=== PATIENT | male | born 1930 | race Caucasian/White ===

== ENCOUNTER 2017-04-08 10:03 | Outpatient (CLI) | payer MEDICARE, OTHER | END 2017-04-08 10:04 | disposition home or self-care (01) | LOC: SC 10:03 | PROVIDERS: ATTEND Internal Medicine Pulmonary Disease | DX: G47.33 Obstructive sleep apnea (adult) (pediatric) (principal) | CPT/HCPCS: 99203; G0463; 99212 ==

== ENCOUNTER 2017-04-18 21:37 | Outpatient (CLI) | payer MEDICARE, OTHER | END 2017-04-18 21:38 | disposition home or self-care (01) | LOC: SC 21:37 | PROVIDERS: ATTEND Internal Medicine Pulmonary Disease | DX: G47.61 Periodic limb movement disorder (principal) | CPT/HCPCS: 95810 ==

== ENCOUNTER 2017-05-22 11:06 | Outpatient (CLI) | payer MEDICARE, OTHER | END 2017-05-22 11:07 | disposition home or self-care (01) | LOC: SC 11:06 | PROVIDERS: ATTEND Nurse Practitioner Family | DX: G47.61 Periodic limb movement disorder (principal); I49.9 Cardiac arrhythmia, unspecified | CPT/HCPCS: 99215; G0463; 99212 ==

== ENCOUNTER 2021-05-04 21:48 | Outpatient (CLI) | payer MEDICARE, OTHER | END 2021-05-04 21:49 | disposition EMS.NT | LOC: EMS 21:48 | DX: Z03.89 Encounter for observation for other suspected diseases and conditions ruled out (principal) ==

== ENCOUNTER 2021-05-06 23:47 | Outpatient (CLI) | payer MEDICARE, OTHER | END 2021-05-06 23:48 | disposition short-term general hospital (02) | LOC: EMS 23:47 | DX: Z91.81 History of falling (principal) | CPT/HCPCS: A0425; A0429 ==